=== PATIENT | male | born 1980 | race Caucasian/White ===

== ENCOUNTER 2023-04-30 07:49 | Day surgery (SDC) | payer OTHER ==
[~2023-04-30] VITALS: Ht 170.2 cm; Wt 126.0 kg
[~2023-04-30 07:49] MED LIST: ERGO500029; LISI20TA33 PO; NS 1,000 ML IV ONE; PANT40TA29 PO; SIMV10TA21 PO; TRUL10IN
[2023-04-30] MEDS ORDERED: propofoL 200 MG/20 ML VIAL As Ordered ONE ×2 (09:46→09:53)
[2023-04-30] MEDS ORDERED: LIDOCAINE 2% 100MG/5ML SDV (FOR ANES.) As Ordered ONE (09:46)
[2023-04-30 10:14] VITALS: TEMP 96.5
[2023-04-30 10:30] VITALS: BP 109/79; O2SAT 96
== END 2023-04-30 10:50 | disposition home or self-care (01) ==
LOC: M OPP 07:49
PROVIDERS: ATTEND Internal Medicine Gastroenterology
DX: R19.4 Change in bowel habit (principal); K64.8 Other hemorrhoids; R12 Heartburn; K22.89 Other specified disease of esophagus; D12.5 Benign neoplasm of sigmoid colon; I10 Essential (primary) hypertension; E78.00 Pure hypercholesterolemia, unspecified; E11.9 Type 2 diabetes mellitus without complications; Z86.69 Personal history of other diseases of the nervous system and sense organs; Z79.899 Other long term (current) drug therapy; Z79.85 Long-term (current) use of injectable non-insulin antidiabetic drugs